=== PATIENT | male | born 1995 | race Caucasian/White ===

== ENCOUNTER 2018-04-16 14:44 | Emergency (ER) | payer MEDICAID, OTHER ==
[~2018-04-16] VITALS: Ht 172.7 cm; Wt 83.0 kg
[2018-04-16 15:07] VITALS: BP 110/75
== END 2018-04-17 00:57 | disposition left against medical advice (07) ==
LOC: ER 04-17 00:20
DX: L60.0 Ingrowing nail (principal)
CPT/HCPCS: 99281